=== PATIENT | female | born 1965 | race African-American/Black ===

== ENCOUNTER 2017-06-13 20:55 | Emergency (ER) | payer SELFPAY ==
[2017-06-13] MEDS ORDERED: Acetaminophen 500 MG TAB ONE (21:25)
--- NOTE | 2017-06-13 22:08 | RAD ---
PA AND LATERAL CHEST X-RAY 06/13/17 HISTORY: Cough and fever, decreased breath sounds. FINDINGS: There is mild patchy air space opacities seen within the medial aspect left lower lobe. Right lung is clear. Cardiac silhouette and pulmonary vasculature are within normal limits. Osseous structures are intact. IMPRESSION: Left lower lobe pneumonia. Followup to resolution is recommended. POS: [facility]
== END 2017-06-13 21:59 | disposition home or self-care (01) ==
LOC: MADERS 20:55
DX: J18.9 Pneumonia, unspecified organism (principal); I10 Essential (primary) hypertension
CPT/HCPCS: 71046; 87804